=== PATIENT | male | born 1980 | race Caucasian/White ===

== ENCOUNTER 2021-07-08 18:15 | Emergency (ER) | payer OTHER ==
[2021-07-08] MEDS ORDERED: predniSONE 20 MG Tab PO ONE (19:21)
--- NOTE | 2021-07-08 19:31 | EDM.PDOC ---
ED HPI GENERAL MEDICAL PROBLEM - General Chief Complaint: Respiratory Problem Stated Complaint: CHEST PAIN\\ASTHMA Time Seen by Provider: 07/08/21 19:08 Source of Information: Reports: Patient, RN Notes Reviewed History Limitations: Reports: No Limitations - History of Present Illness INITIAL COMMENTS - FREE TEXT/NARRATIVE: Patient is a 40-year-old male who presents to the ER for an asthma exacerbation. States that he does have albuterol inhaler at home, and takes a maintenance medication once a day. States that he has been using his albuterol inhaler more often, he resides in [place] and is in this area for [place]. States that he had issues like this last year as well. At the house he is visiting, he does have access to albuterol nebulizer, and he states that he did take a few of these today as well. States that it just does not seem to be helping him get a "really deep breath". States he has a feeling of a band around his chest. He is having no chest pain however. O2 sats are about 94% on room air and he is in no visible respiratory distress. Patient denies any other sick-like symptoms, fever/chills, cough/shortness of breath, nausea/vomiting/diarrhea. - Related Data Allergies Allergy/AdvReac Type Severity Reaction Status Date / Time shellfish derived Allergy Severe Hives Verified 07/08/21 19:06 Home Meds: Home Meds Albuterol [Proventil Neb Soln] 1 puff INH ASDIRECTED PRN 07/08/21 [History] Levothyroxine [Synthroid] 50 mcg PO QAM 07/08/21 [History] Past Medical History Respiratory History: Reports: Asthma Social & Family History - Tobacco Use Tobacco Use Status *Q: Never Tobacco User Second Hand Smoke Exposure: No - Caffeine Use Caffeine Use: Reports: Coffee - Recreational Drug Use Recreational Drug Use: No ED ROS GENERAL - Review of Systems Review Of Systems: Comprehensive ROS is negative, except as noted in HPI. ED EXAM, GENERAL - Physical Exam Exam: See Below Exam Limited By: No Limitations General Appearance: Alert, WD/WN, No Apparent Distress Respiratory/Chest: No Respiratory Distress, Lungs Clear, Normal Breath Sounds, No Accessory Muscle Use, Chest Non-Tender Cardiovascular: Normal Peripheral Pulses, Regular Rate, Rhythm, No Edema Extremities: Normal Inspection, Normal Capillary Refill Neurological: Alert, Oriented, Normal Cognition, No Motor/Sensory Deficits Psychiatric: Normal Affect, Normal Mood Skin Exam: Warm, Dry, Intact, Normal Color, No Rash Course - Vital Signs Last Recorded V/S: Last Vital Signs Temp 96.9 F 07/08/21 19:04 Pulse 76 07/08/21 19:04 Resp 20 07/08/21 19:04 BP 141/76 H 07/08/21 19:04 Pulse Ox 93 L 07/08/21 19:04 - Orders/Labs/Meds Meds: Medications Discontinued Medications Generic Name Dose Route Start Last Admin Trade Name Jay PRN Reason Stop Dose Admin Prednisone 40 mg 07/08/21 19:21 Prednisone 20 Mg Tab PO 07/08/21 19:22 ONETIME ONE - Re-Assessments/Exams Free Text/Narrative Re-Assessment/Exam: 07/08/21 19:25 Patient presents to the ER for evaluation of his asthma exacerbation, patient is stable at this time, and is not having any wheezing, he took an albuterol inhaler prior to arrival to the ER, so we will hold off on any sort of nebulizer/inhalers. We will give a dose of oral steroids and give him a burst of oral steroids for ongoing management. Patient verbalized understanding of this plan. Departure - Departure Time of Disposition: 19:26 Disposition: Home, Self-Care 01 Condition: Good Clinical Impression: Exacerbation of asthma Qualifiers: Asthma severity: mild Asthma persistence: unspecified Qualified Code(s): J45.901 - Unspecified asthma with (acute) exacerbation - Discharge Information *PRESCRIPTION DRUG MONITORING PROGRAM REVIEWED*: No *COPY OF PRESCRIPTION DRUG MONITORING REPORT IN PATIENT JENNIFER: No Instructions: Asthma, Adult, [id number] Referrals: PCP,Not In Area [Primary Care Provider] - Additional Instructions: You were evaluated in the ER today for your acute asthma exacerbation. You were given oral steroids in the ER, and a continuing prescription for this over the next few days. You will need take 1 tablet 2 times a day for the next 5 days, and then 1 tablet daily for the last 5 days. You were given this prescription through the [employer] machine in our ER waiting room, you will have 5 tablets extra, these may be discarded at any pharmacy or in the trash. You will need to take your albuterol inhaler, 2 puffs 4 times a day, or albuterol nebulizer, 4 times a day for the next few days, then you may taper to 3 times a day, then twice daily, and then daily to more of a PRN type schedule again yet. Do not hesitate to return to the ER at any time if symptoms change or worsen. Sepsis Event Note (ED) - Focused Exam Vital Signs: Vital Signs Temp Pulse Resp BP Pulse Ox 07/08/21 19:04 96.9 F 76 20 141/76 H 93 L
== END 2021-07-08 19:58 | disposition home or self-care (01) ==
LOC: JD.ED 18:15
DX: J45.901 Unspecified asthma with (acute) exacerbation (principal); Z79.899 Other long term (current) drug therapy; Z91.013 Allergy to seafood
CPT/HCPCS: 99284; J7512